=== PATIENT | female | born 1945 | race Caucasian/White ===

== ENCOUNTER 2022-06-23 08:08 | Emergency (ER) | payer OTHER, MEDICARE ==
[2022-06-23] MEDS ORDERED: cloNIDine 0.1 MG TAB ONE (08:58)
[2022-06-23] MEDS ORDERED: traMADol HCl 50 MG TAB ONE (08:58)
[2022-06-23] MEDS ORDERED: Ondansetron ODT 4 MG TAB ONE (09:56)
== END 2022-06-23 10:17 | disposition home or self-care (01) ==
LOC: NAV ERS 08:08
DX: S42.295A Other nondisplaced fracture of upper end of left humerus, initial encounter for closed fracture (principal); I10 Essential (primary) hypertension; J44.9 Chronic obstructive pulmonary disease, unspecified; F17.210 Nicotine dependence, cigarettes, uncomplicated; W18.30XA Fall on same level, unspecified, initial encounter; Y93.01 Activity, walking, marching and hiking; Y92.009 Unspecified place in unspecified non-institutional (private) residence as the place of occurrence of the external cause; Z79.899 Other long term (current) drug therapy
CPT/HCPCS: Q0162